=== PATIENT | female | born 1940 | race Two or more races ===

== ENCOUNTER 2020-07-25 13:02 | Inpatient (IN) | payer OTHER ==
[~2020-07-25] VITALS: Ht 152.4 cm; Wt 49.9 kg
[2020-07-25] MEDS ORDERED: ARICEPT10 MG (13:17)
[2020-07-25] MEDS ORDERED: AMLODIPINE-OLM1 EAC3 (13:17)
[2020-07-25] MEDS ORDERED: VASOTEC20 MG (13:17)
[2020-07-25] MEDS ORDERED: RIOMET500 MG/5 M (13:18)
--- NOTE | 2020-07-25 13:18 | NUR ---
SE RECIBE PTE E AMBULANCIA LETARGICA TIENE ALZHEIMER ACOMPNADA POR AMARO HIJO EL CUAL REFIERE QUE LA PTE TIENE ULCERA SACRAL LLEVA 2 SEMANAS DE TRATAMIENTO EN EL AREA SACRAL,REFIERE QUE TIENE BLISTER EN EL FERMIN DEL PIE RT.
--- NOTE | 2020-07-25 16:13 | NUR ---
PT ALERTA Y ORIENTADA X3 ESFERAS SE LE ORIENTA SOBRE TX Y REFIERE ENTEDER. SE IZABELA MUESTRAS DE MARCIN Y VENOPUNCION CON TECNICAS ASEPTICAS. SE ADMINSITRAN MEDICAMENTOS E IVFLUIDS ORDENADOS. PT TOLERA TX. SE REALIZA INSERCION DE PUENTES CATETER CON TECNICAS ASEPTICAS Y ESTERILES. SE REALIZA CAMBIO DE PAMPER SUCIO. SE REALIZA CAMBIO DE POSICION. SE CAITLYN PT BAJO OBSERVACION POR CAMBIOS EN DWIGHT. PT TOLERA TX.
== END 2020-08-10 15:20 | disposition expired | DRG 853 ==
LOC: ER 13:02 → SURH 16:55 → MEDJ 07-30 17:33
PROVIDERS: ADMIT Specialist; ATTEND Specialist
PROC: B24BZZZ Ultrasonography of Heart with Aorta (ICD-10-PCS; 2020-07-27)
PROC: 0QB13ZX Excision of Sacrum, Percutaneous Approach, Diagnostic (ICD-10-PCS; principal; 2020-08-01)
PROC: 0JD73ZZ Extraction of Back Subcutaneous Tissue and Fascia, Percutaneous Approach (ICD-10-PCS; 2020-08-01)
PROC: 30233N1 Transfusion of Nonautologous Red Blood Cells into Peripheral Vein, Percutaneous Approach (ICD-10-PCS; 2020-08-02)
PROC: 0JD73ZZ Extraction of Back Subcutaneous Tissue and Fascia, Percutaneous Approach (ICD-10-PCS; 2020-08-06)
PROC: 3E0F7SF Introduction of Other Gas into Respiratory Tract, Via Natural or Artificial Opening (ICD-10-PCS; 2020-08-06)
PROC: 0DH67UZ Insertion of Feeding Device into Stomach, Via Natural or Artificial Opening (ICD-10-PCS; 2020-08-07)
PROC: 4A12X4Z Monitoring of Cardiac Electrical Activity, External Approach (ICD-10-PCS; 2020-08-07)
DX: A41.59 Other Gram-negative sepsis (principal); L89.154 Pressure ulcer of sacral region, stage 4; J69.0 Pneumonitis due to inhalation of food and vomit; R65.21 Severe sepsis with septic shock; M46.28 Osteomyelitis of vertebra, sacral and sacrococcygeal region; N17.8 Other acute kidney failure; E87.0 Hyperosmolality and hypernatremia; L97.419 Non-pressure chronic ulcer of right heel and midfoot with unspecified severity; E87.2 Acidosis; G30.8 Other Alzheimer's disease; F02.80 Dementia in other diseases classified elsewhere, unspecified severity, without behavioral disturbance, psychotic disturbance, mood disturbance, and anxiety; I10 Essential (primary) hypertension; E11.22 Type 2 diabetes mellitus with diabetic chronic kidney disease; N18.9 Chronic kidney disease, unspecified; Z74.01 Bed confinement status; E86.0 Dehydration; D64.9 Anemia, unspecified; Z66 Do not resuscitate; B95.4 Other streptococcus as the cause of diseases classified elsewhere; Z20.828 Contact with and (suspected) exposure to other viral communicable diseases; Z79.4 Long term (current) use of insulin